=== PATIENT | male | born 1965 | race Caucasian/White ===

== ENCOUNTER → 2018-11-20 | Outpatient (CLI) | payer OTHER ==
[~2018-11-20] MED LIST: DOXYCYCLINE100 M3 PO; PROVENTIL HFA6.7 GM INH; TESSALON PERLE100 M1 PO
[2018-11-20 10:47] LABS: ALBUMIN 3.6 gm/dl (3.1-4.5); ALKALINE PHOSPHATASE 108 U/L (45-117); BILIRUBIN, DIRECT < 0.1 mg/dL (0.0-0.2); SGOT/AST 24 IU/L (3-35); SGPT/ALT 22 U/L (12-78)
== END | disposition home or self-care (01) ==
LOC: LAB 10:11
PROVIDERS: Psychiatry & Neurology Psychiatry
DX: Z51.81 Encounter for therapeutic drug level monitoring (principal); F10.10 Alcohol abuse, uncomplicated; Z79.899 Other long term (current) drug therapy